=== PATIENT | female | born 1960 | race Caucasian/White ===

== ENCOUNTER 2018-04-22 18:01 | Emergency (ER) | payer OTHER ==
[~2018-04-22] VITALS: Ht 167.6 cm; Wt 67.9 kg
[~2018-04-22 18:01] MED LIST: BIOTIN; BIOTIN 5000MCG PO; BLACK COHOSH ROOT; CALCIUM; CALCIUM 500 MG1 EAC1 PO; CLARITIN,ALAVAR10 MG PO; FIBER; FOLIC ACID; FOLIC ACID0.8 M1 PO; METAMUCIL PACKE1 PKT PO; PEPCID AC20 MG PO; VITAMIN D; VITAMIN D31000 UNIT PO; ZANTAC; ZYRTEC10 M3 PO
[2018-04-22 18:35] LABS: HEMOGLOBIN 13.8 G/DL (11.9-15.5); MCH 30.9 PG (29.0-34.0); MCHC 34.5 G/DL (30.0-36.0); MCV 89.7 FL (83-99); PLATELET COUNT 237 K/uL (156-360); RBC DIS.WIDTH-CV 12.4 % (11.8-14.6); RED BLOOD COUNT 4.46 M/uL (3.80-5.20); WHITE BLOOD COUNT 5.1 K/uL (4.1-10.2)
[2018-04-22 18:48] LABS: CHLORIDE 103 mEq/L (99-109); SODIUM 141 mEq/L (136-147)
[2018-04-22 18:50] LABS: GLUCOSE 98 mg/dL (70-99)
[2018-04-22 18:53] LABS: CREATININE 0.8 mg/dL (0.6-1.3); GFR ESTIMATE (CALCULATED) > 59 mL/min/
[2018-04-22 18:54] LABS: UREA NITROGEN (BUN) 11 mg/dL (9-23)
[2018-04-22 18:59] LABS: TROP-I INTERPRETATION NEGATIVE; TROPONIN-I < 0.01 ng/mL (0.0-0.30)
[2018-04-22 21:24] LABS: TROP-I INTERPRETATION NEGATIVE; TROPONIN-I < 0.01 ng/mL (0.0-0.30)
[2018-04-22 22:01] VITALS: BP 137/85
== END 2018-04-22 22:03 | disposition home or self-care (01) ==
LOC: EME 18:01
PROVIDERS: Nurse Practitioner Family
DX: R07.89 Other chest pain (principal); K21.9 Gastro-esophageal reflux disease without esophagitis; Z86.73 Personal history of transient ischemic attack (TIA), and cerebral infarction without residual deficits; Z87.39 Personal history of other diseases of the musculoskeletal system and connective tissue; Z90.49 Acquired absence of other specified parts of digestive tract; Z88.2 Allergy status to sulfonamides
CPT/HCPCS: 71046; 80048; 84484; 85027; 93005; 99281; 99284

== ENCOUNTER 2018-04-27 14:22 | Emergency (ER) | payer OTHER ==
[~2018-04-27] VITALS: Ht 167.6 cm; Wt 68.7 kg
[2018-04-27 15:51] VITALS: BP 112/68
== END 2018-04-27 16:38 | disposition home or self-care (01) ==
LOC: EME 14:22
PROC: 2W3QX1Z Immobilization of Right Lower Leg using Splint (ICD-10-PCS; principal; 2018-04-27)
DX: S93.401A Sprain of unspecified ligament of right ankle, initial encounter (principal); W10.9XXA Fall (on) (from) unspecified stairs and steps, initial encounter; Z88.2 Allergy status to sulfonamides
CPT/HCPCS: 73610; 99281; 99284